=== PATIENT | female | born 1975 | race Caucasian/White ===

== ENCOUNTER → 2019-01-15 | Outpatient (CLI) | payer OTHER ==
--- NOTE | 2019-01-15 10:55 | CARD ---
MR#: [id number] Date of Study: 01/15/2019 Ordering Physician: ADEOLA CLARK, Referring Physician: ADEOLA CLARK, Tech: Guillermina Grimaldo APPROVED REPORT EXAM: Two-dimensional and M-mode echocardiogram with Doppler and color Doppler. Other Information Quality : AverageHR: 82bpm Rhythm : NSR INDICATION Hypertension/HCVD RISK FACTORS Asthma 2D DIMENSIONS RVDd2.6 (2.9-3.5cm)Left Atrium(2D)3.2 (1.6-4.0cm) IVSd1.1 (0.7-1.1cm)Aortic Root(2D)2.8 (2.0-3.7cm) LVDd4.4 (3.9-5.9cm)LVOT Diameter2.1 (1.8-2.4cm) PWd1.0 (0.7-1.1cm)LVDs2.9 (2.5-4.0cm) FS (%) 34.9 %SV57.6 ml LVEF(%)64.3 (>50%) Aortic Valve AoV Peak Gerber.146.7cm/sAoV VTI31.1cm AO Peak GR.8.6mmHgLVOT Peak Gerber.115.8cm/s LVOT VTI 23.09cmAO Mean GR.6mmHg TIMOTHY (VMAX)1.81ak3TVY (VTI)2.52cm2 Mitral Valve MV E Zqxxhfgb50.0cm/sMV DECEL ACDL737xw MV A Mhksenbq17.9cm/sMV AHI17sf E/A Ratio1.3MVA (PHT)4.22cm2 TDI E/Lateral E'7.1E/Medial E'8.1 Pulmonary Valve PV Peak Lhpicuoy58.0cm/sPV Peak Grad.3mmHg Tricuspid Valve TR P. Pjzribox658mk/sRAP LTQDDSTU1mpZc TR Peak Gr.31kmOzCRWG89wtAb Pulmonary Vein S1 Arbvhywp23.9cm/sD2 Dalbghoj69.3cm/s PVa tpmgaezk990jlbd LEFT VENTRICLE The left ventricle is normal size. There is borderline to mild concentric left ventricular hypertroph y. The left ventricular systolic function is normal. The Ejection Fraction is 55-60%. There is normal LV segmental wall motion. Transmitral Doppler flow pattern is Grade II-pseudonormal filling dynamics . RIGHT VENTRICLE The right ventricle is normal size. There is normal right ventricular wall thickness. The right ventr icular systolic function is normal. ATRIA The left atrium size is normal. The right atrium size is normal. The interatrial septum is intact wit h no evidence for an atrial septal defect or patent foramen ovale as noted on 2-D or Doppler imaging. AORTIC VALVE The aortic valve is normal in structure and function. Doppler and Color Flow revealed trace aortic re gurgitation. There is no significant aortic valvular stenosis. MITRAL VALVE The mitral valve is normal in structure and function. There is no evidence of mitral valve prolapse. There is no mitral valve stenosis. Doppler and Color-flow revealed trace mitral regurgitation. TRICUSPID VALVE The tricuspid valve is normal in structure and function. Doppler and Color Flow revealed trace tricus pid regurgitation with an estimated PAP of 28 mmHg. There is no tricuspid valve stenosis. PULMONIC VALVE The pulmonary valve is normal in structure and function. Doppler and Color Flow revealed no pulmonic valvular regurgitation. GREAT VESSELS The aortic root is normal in size. The IVC is normal in size and collapses >50% with inspiration. PERICARDIAL EFFUSION There is no evidence of significant pericardial effusion. Critical Notification Critical Value: No <Conclusion> The left ventricular systolic function is normal. The Ejection Fraction is 55-60%. There is normal LV segmental wall motion. Trace aortic regurgitation. Trace mitral regurgitation. Trace tricuspid regurgitation with an estimated PAP of 28 mmHg. There is no evidence of significant pericardial effusion. Signed by : Solo Emmanuel, Electronically Approved : 01/15/2019 10:55:00
== END | disposition home or self-care (01) ==
LOC: ECHO 08:44
PROVIDERS: ATTEND Internal Medicine
DX: I11.9 Hypertensive heart disease without heart failure (principal)
CPT/HCPCS: 93306

== ENCOUNTER 2019-11-06 23:58 | Emergency (ER) | payer OTHER ==
[~2019-11-06] VITALS: Ht 162.6 cm; Wt 108.0 kg
[2019-11-07] MEDS ORDERED: IV NORMAL SALINE 1000ML BAG 1,000 ML IV SCH (00:30)
[2019-11-07 00:43] LABS: BASO # 0.1 x10^3/uL (0.0-0.2); BASO % 1 % (0-3); EOS # 0.2 x10^3/uL (0.0-0.7); EOS % 2 % (0-3); HEMATOCRIT 38.7 % (36.0-47.0); HEMOGLOBIN 13.2 g/dL (12.0-15.5); LYMPH # 2.8 x10^3/uL (1.0-4.8); LYMPH % 39 % (24-48); MEAN CORPUSCULAR HEMOGLOBIN 31 pg (25-35); MEAN CORPUSCULAR HGB CONC 34 g/dL (31-37); MEAN CORPUSCULAR VOLUME 92 fL (79-100); MONO # 0.6 x10^3/uL (0.0-1.1); MONO % 8 % (0-9); NEUT # 3.6 x10^3/uL (1.8-7.7); NEUT % 50 % (31-73); PLATELET COUNT 279 x10^3/uL (140-400); RED BLOOD COUNT 4.22 x10^6/uL (3.50-5.40); RED CELL DISTRIBUTION WIDTH 13.8 % (11.5-14.5); WHITE BLOOD COUNT 7.3 x10^3/uL (4.0-11.0)
--- NOTE | 2019-11-07 00:54 | RAD ---
Study: CR PORTABLE CHEST 1V Indication: Chest pain. Comparison: None. Findings: Within normal limits cardiomediastinal silhouette and brii. No lobar consolidation, pleural effusion or pneumothorax. Impression: No acute radiographic abnormality of the chest. Electronically signed by: PANFILO BIRMINGHAM MD (11/07/2019 12:52 AM) [id number]
[2019-11-07 00:56] LABS: CALCIUM 8.4 mg/dL (8.5-10.1); CREATININE 1.3 mg/dL (0.6-1.0); GFR 44.3; POTASSIUM 3.5 mmol/L (3.5-5.1)
[2019-11-07 01:02] LABS: ALBUMIN 3.6 g/dL (3.4-5.0); ALBUMIN/GLOBULIN RATIO 1.2 (1.0-1.7); MAGNESIUM 1.8 mg/dL (1.8-2.4); TOTAL BILIRUBIN 0.5 mg/dL (0.2-1.0); TOTAL PROTEIN 6.6 g/dL (6.4-8.2)
--- NOTE | 2019-11-07 01:19 | PHYS DOC ---
Past Medical History Past Medical History: Asthma, GERD, Hypertension Past Surgical History: No Surgical History Smoking Status: Never Smoker Alcohol Use: None General Adult EDM: Chief Complaint: WEAKNESS/GENERALIZED HPI: HPI: Patient is a 44 year old female who presents with complaint of right arm numbness that started about 4 hours prior to arrival. Patient states that she had been out walking with her when she started noticing some numbness and tingling in her right arm. She denies any other symptoms at that time. She also indicates that she has been having ongoing chest discomfort for the last several weeks that has been intermittent. She states that her primary care doctor has worked it up but has so far returned negative. Patient states that when she got here in the hospital, she noticed that she had some weakness in both her legs, stating that they felt a little bit unsteady. She denies any numbness in the legs. She denies any speech deficits or focal lateralizing weakness. She denies any actual chest pain currently.[] Review of Systems: Review of Systems: Constitutional: Denies fever or chills. [] Respiratory: Denies cough or shortness of breath. [] Cardiovascular: Complains of intermittent chest pain. [] GI: Denies abdominal pain, nausea, vomiting, bloody stools or diarrhea. [] Neurologic: Denies headache or focal weakness. Complains of right arm numbness and tingling area [] A full 10 point review of systems has been reviewed and is otherwise negative. Heart Score: Risk Factors: Risk Factors: DM, Current or recent (<one month) smoker, HTN, HLP, family history of CAD, obesity. Risk Scores: Score 0 - 3: 2.5% MACE over next 6 weeks - Discharge Home Score 4 - 6: 20.3% MACE over next 6 weeks - Admit for Clinical Observation Score 7 - 10: 72.7% MACE over next 6 weeks - Early Invasive Strategies Current Medications: Current Medications Medications (Trade) Dose Ordered Sig/Katy Start Time Stop Time Status Last Admin Dose Admin Sodium Chloride 1,000 ml @ 1,000 mls/hr Q1H 11/07/19 00:30 11/07/19 01:29 11/07/19 01:01 1,000 MLS/HR Allergies: Allergies: Allergies Coded Allergies Type Severity Reaction Last Updated Verified No Known Drug Allergies 11/07/19 No Physical Exam: PE: Constitutional: Well developed, well nourished, no acute distress, non-toxic appearance. [] HENT: Normocephalic, atraumatic, bilateral external ears normal, oropharynx moist, no oral exudates, nose normal. [] Eyes: PERRLA, EOMI, conjunctiva normal, no discharge. [] Neck: Normal range of motion, no tenderness, supple, no stridor. [] Cardiovascular: Regular rate and rhythm[] Lungs & Thorax: Bilateral breath sounds clear to auscultation [] Abdomen: Bowel sounds normal, soft, no tenderness. [] Skin: Warm, dry, no erythema, no rash. [] Extremities: No tenderness, no cyanosis, no clubbing, ROM intact. [] Neurologic: Alert and oriented X 3, normal motor function, normal sensory function, no focal deficits noted. [] Current Patient Data: Labs: Laboratory Tests Test 11/07/19 00:27 White Blood Count 7.3 x10^3/uL (4.0-11.0) Red Blood Count 4.22 x10^6/uL (3.50-5.40) Hemoglobin 13.2 g/dL (12.0-15.5) Hematocrit 38.7 % (36.0-47.0) Mean Corpuscular Volume 92 fL (79-100) Mean Corpuscular Hemoglobin 31 pg (25-35) Mean Corpuscular Hemoglobin Concent 34 g/dL (31-37) Red Cell Distribution Width 13.8 % (11.5-14.5) Platelet Count 279 x10^3/uL (140-400) Neutrophils (%) (Auto) 50 % (31-73) Lymphocytes (%) (Auto) 39 % (24-48) Monocytes (%) (Auto) 8 % (0-9) Eosinophils (%) (Auto) 2 % (0-3) Basophils (%) (Auto) 1 % (0-3) Neutrophils # (Auto) 3.6 x10^3/uL (1.8-7.7) Lymphocytes # (Auto) 2.8 x10^3/uL (1.0-4.8) Monocytes # (Auto) 0.6 x10^3/uL (0.0-1.1) Eosinophils # (Auto) 0.2 x10^3/uL (0.0-0.7) Basophils # (Auto) 0.1 x10^3/uL (0.0-0.2) Sodium Level 144 mmol/L (136-145) Potassium Level 3.5 mmol/L (3.5-5.1) Chloride Level 103 mmol/L (98-107) Carbon Dioxide Level 30 mmol/L (21-32) Anion Gap 11 (6-14) Blood Urea Nitrogen 20 mg/dL (7-20) Creatinine 1.3 mg/dL (0.6-1.0) H Estimated GFR (Cockcroft-Gault) 44.3 BUN/Creatinine Ratio 15 (6-20) Glucose Level 107 mg/dL (70-99) H Calcium Level 8.4 mg/dL (8.5-10.1) L Magnesium Level 1.8 mg/dL (1.8-2.4) Total Bilirubin 0.5 mg/dL (0.2-1.0) Aspartate Amino Transferase (AST) 21 U/L (15-37) Alanine Aminotransferase (ALT) 34 U/L (14-59) Alkaline Phosphatase 95 U/L (46-116) Troponin I Quantitative < 0.017 ng/mL (0.000-0.055) NF-Abe-H-Type Natriuretic Peptide 7 pg/mL (0-124) Total Protein 6.6 g/dL (6.4-8.2) Albumin 3.6 g/dL (3.4-5.0) Albumin/Globulin Ratio 1.2 (1.0-1.7) Lipase 352 U/L (73-393) Laboratory Tests 11/07/19 00:27 Laboratory Tests 11/07/19 00:27 Vital Signs: Vital Signs Date Time Temp Pulse Resp B/P (MAP) Pulse Ox O2 Delivery O2 Flow Rate FiO2 11/07/19 01:00 104 20 96 11/07/19 00:07 97.7 127/94 (105) Room Air 97.7 EKG: EKG: EKG demonstrates normal sinus rhythm with rate of 95.[] Radiology/Procedures: Radiology/Procedures: [] Impression: PROCEDURE: CT HEAD WO CONTRAST STUDY: CT head without contrast INDICATION: Right arm numbness. Bilateral leg weakness. COMPARISON: 02/15/2013 TECHNIQUE: Axial CT imaging through the head without the use of intravenous contrast. Sagittal and coronal reformats were obtained. One or more of the following individualized dose reduction techniques were utilized for this examination: 1. Automated exposure control 2. Adjustment of the mA and/or kV according to patient size 3. Use of iterative reconstruction technique. FINDINGS: No acute intracranial hemorrhage. No mass effect, midline shift or hydrocephalus. No CT evidence for an acute cortical infarction. The visualized orbits are unremarkable. No large scalp hematoma. Intact calvarium. Normally aerated mastoid air cells and middle ears. The visualized paranasal sinuses are normally aerated as well. IMPRESSION: No acute intracranial abnormality by CT. If there is ongoing concern for a recent ischemic event MRI is recommended. Electronically signed by: PANFILO BIRMINGHAM MD (11/07/2019 2:08 AM) [id number] Course & Med Decision Making: Course & Med Decision Making Pertinent Labs and Imaging studies reviewed. (See chart for details) [] Dragon Disclaimer: Dragon Disclaimer: This electronic medical record was generated, in whole or in part, using a voice recognition dictation system. Departure Departure Impression: Primary Impression: Paresthesia Disposition: 01 HOME, SELF-CARE Condition: STABLE Referrals: ADEOLA CLARK MD (PCP) Patient Instructions: Paresthesia JAYA PEGUERO Jr. DO Nov 07, 2019 01:19
[2019-11-07 02:08] VITALS: BP 103/76
--- NOTE | 2019-11-07 02:11 | RAD ---
STUDY: CT head without contrast INDICATION: Right arm numbness. Bilateral leg weakness. COMPARISON: 02/15/2013 TECHNIQUE: Axial CT imaging through the head without the use of intravenous contrast. Sagittal and coronal reformats were obtained. One or more of the following individualized dose reduction techniques were utilized for this examination: 1. Automated exposure control 2. Adjustment of the mA and/or kV according to patient size 3. Use of iterative reconstruction technique. FINDINGS: No acute intracranial hemorrhage. No mass effect, midline shift or hydrocephalus. No CT evidence for an acute cortical infarction. The visualized orbits are unremarkable. No large scalp hematoma. Intact calvarium. Normally aerated mastoid air cells and middle ears. The visualized paranasal sinuses are normally aerated as well. IMPRESSION: No acute intracranial abnormality by CT. If there is ongoing concern for a recent ischemic event MRI is recommended. Electronically signed by: PANFILO BIRMINGHAM MD (11/07/2019 2:08 AM) [id number]
[2019-11-07 02:26] LABS: BILIRUBIN,URINE NEGATIVE (NEG); CLARITY,URINE CLEAR; COLOR,URINE YELLOW; NITRITE,URINE NEGATIVE (NEG); PROTEIN,URINE NEGATIVE (NEG-TRACE)
[2019-11-07 02:37] LABS: BACTERIA,URINE FEW /HPF (0-FEW); HYALINE CASTS, URINE FEW /HPF; RBC,URINE OCC /HPF (0-2); SQUAMOUS EPITHELIAL CELL,UR MOD /LPF
--- NOTE | 2019-11-07 05:13 | EKG ---
[facility] [address] [place] [address] Test Date: 2019-11-07 Test Time: 00:29:45 Pat Name: ARIAN GAVIN Department: Room: Gender: F Scientific Investigator: : 1975 Requested By: JAYA PEGUERO Order Number: [id number] Reading MD: Solo Emmanuel Measurements Intervals [place] Rate: 94 P: 24 [place]: 138 QRS: 12 QRSD: 74 T: -1 QT: 366 QTc: 463 Interpretive Statements SINUS RHYTHM NON SPECIFIC T ABNORMALITY Electronically Signed On 11-07-2019 20:18:11 CDT by Solo Emmanuel
== END 2019-11-07 02:30 | disposition home or self-care (01) ==
LOC: ER 23:58
DX: R20.2 Paresthesia of skin (principal); R07.89 Other chest pain; J45.909 Unspecified asthma, uncomplicated; I10 Essential (primary) hypertension; K21.9 Gastro-esophageal reflux disease without esophagitis
CPT/HCPCS: 36415; 70450; 71045; 80053; 81001; 81025; 83690; 83735; 83880; 84484; 85025; 93005; 99285; J7030

== ENCOUNTER 2019-11-15 17:39 | Emergency (ER) | payer OTHER ==
[~2019-11-15] VITALS: Ht 162.6 cm; Wt 96.8 kg
[2019-11-15] MEDS ORDERED: IV NORMAL SALINE 1000ML BAG 1,000 ML IV ONE (18:15)
--- NOTE | 2019-11-15 18:25 | PHYS DOC ---
Past Medical History Past Medical History: Asthma, GERD, Hypertension Past Surgical History: No Surgical History Smoking Status: Never Smoker Alcohol Use: None Drug Use: None General Adult EDM: Chief Complaint: CHEST PAIN HPI: HPI: 44-year-old female presents with 4 week history of midsternal chest discomfort which is worse after eating. Reports sensation that she needs to "burp". Patient reports she has previously been seen and had a x-ray performed. Patient was seen via Dr. Rae (GI) and underwent and an EGD in which she had her esophagus stretched. Patient reports pain is worse today. Denies fever or chills. Denies cough. Denies leg swelling or calf tenderness. Reports her PCP thought initially symptoms might be secondary to her asthma. Patient reports concern that symptoms have continued despite all these interventions and evaluations. Cardiac risk factors for high blood pressure. Review of Systems: Review of Systems: Constitutional: Denies fever or chills Eyes: Denies redness or eye pain HENT: Denies nasal congestion or sore throat Respiratory: Denies cough or shortness of breath Cardiovascular: Reports chest pain; denies palpitations GI: Reports upper abdominal pain; denies nausea or vomiting : Denies dysuria or hematuria Musculoskeletal: Denies back pain or joint pain Integument: Denies rash or skin lesions Neurologic: Denies headache, focal weakness or sensory changes Complete systems were reviewed and found to be within normal limits, except as documented in this note. Heart Score: HEART Score for Chest Pain: HEART Score for Chest Pain Response (Comments) Value History Slighlty/Non-Suspicious 0 ECG Normal 0 Age >45 - < 65 1 Risk Factors 1 or 2 Risk Factors 1 Troponin < Normal Limit 0 Total 2 Risk Factors: Risk Factors: DM, Current or recent (<one month) smoker, HTN, HLP, family history of CAD, obesity. Risk Scores: Score 0 - 3: 2.5% MACE over next 6 weeks - Discharge Home Score 4 - 6: 20.3% MACE over next 6 weeks - Admit for Clinical Observation Score 7 - 10: 72.7% MACE over next 6 weeks - Early Invasive Strategies Current Medications: Current Medications Medications (Trade) Dose Ordered Sig/Katy Start Time Stop Time Status Last Admin Dose Admin Famotidine (Pepcid Vial) 20 mg 1X ONCE 11/15/19 18:45 5/4/20 18:46 Sodium Chloride 1,000 ml @ 1,000 mls/hr 1X ONCE 11/15/19 18:15 11/15/19 19:14 Allergies: Allergies: Allergies Coded Allergies Type Severity Reaction Last Updated Verified No Known Drug Allergies 11/07/19 No Physical Exam: PE: Constitutional: Well developed, well nourished, no acute distress, non-toxic appearance HENT: Normocephalic, atraumatic, oropharynx moist Eyes: Conjunctiva normal, no discharge Neck: Normal range of motion, no tenderness, supple Cardiovascular: Heart rate normal, regular rhythm Lungs & Thorax: Bilateral breath sounds clear to auscultation, no wheezing/rales/rhonchi Abdomen: Soft, epigastric and LUQ tenderness Skin: Warm, dry, no erythema, no rash Back: No tenderness, no CVA tenderness Extremities: No calf tenderness, ROM intact, no edema Neurologic: Alert and oriented X 3, no focal deficits noted Psychologic: Affect normal, judgment normal Current Patient Data: Vital Signs: Vital Signs Date Time Temp Pulse Resp B/P (MAP) Pulse Ox O2 Delivery O2 Flow Rate FiO2 11/15/19 17:55 98.3 105 16 132/94 (107) 96 Room Air 98.3 EKG: EKG: @1753 Sinus tachycardia 104bpm, t wave inversion III Radiology/Procedures: Radiology/Procedures: PROCEDURE: ABDOMEN LTD CLINICAL HISTORY: upper abdominal pain, worse with eating, eval for cholecystitis COMPARISON: None available. TECHNIQUE: Limited ultrasound examination of the right upper quadrant of the abdomen was performed FINDINGS: Exam is limited given suboptimal sonographic penetration. Pancreas is mostly posterior by overlying bowel gas and stool. Liver: The liver measures 15.7 cm in length in the right mid clavicular line. Increased hepatic echogenicity relative to the right kidney consistent with hepatic steatosis. There is no focal abnormality of the liver. Portal venous flow is confirmed. Gallbladder/Biliary: The gallbladder is normal in appearance without evidence for cholelithiasis. There is no wall thickening or pericholecystic fluid. There is no pain with direct transducer pressure over the gallbladder.The common bile duct measures 0.3 cm. The right kidney measures 9.9 cm in bipolar length. No focal renal lesion. No hydronephrosis. No hydroureter. There is no free fluid in the subhepatic space. IMPRESSION: 1. Increased hepatic echogenicity relative to the right kidney consistent with hepatic steatosis. 2. No sonographic evidence for acute cholecystitis. Electronically signed by: Wily Velasco MD (11/15/2019 7:32 PM) [facility] PROCEDURE: CT ANGIOGRAPHY CHEST ABDOMEN CT ANGIOGRAPHY CHEST ABDOMEN Indication: Chest pain, upper abdominal pain Technique: Pre and postcontrast CT imaging was performed of the chest and abdomen, multiplanar reconstruction to include MIP reconstruction images submitted. One or more of the following individualized dose reduction techniques were utilized for this examination: 1. Automated exposure control 2. Adjustment of the mA and/or kV according to patient size 3. Use of iterative reconstruction technique. Comparison: None CHEST: Findings: There is some motion degradation. Thoracic aortic caliber is within normal limits. No definitive thoracic dissection flap is identified allowing for motion degradation. Maximal caliber of the aortic root is estimated about 3 cm, maximal caliber of the tubular ascending thoracic aorta about 3 cm. Descending thoracic aorta measures up to about 2.2 cm. There is no pneumothorax, pleural pericardial fluid, or significant infiltrate. The major airways are patent. No significantly enlarged nodes are identified of the chest. IMPRESSION: 1. There is no evidence of thoracic aortic aneurysm or convincing dissection flap. Abdomen FINDINGS: Abdominal aortic caliber is within normal limits. No dissection flap identified of the abdominal aorta. There is appearance of heterogeneity of the common iliac arteries bilaterally apparently due to motion degradation. Pelvis was not imaged. There are 2 patient renal arteries on both sides. Celiac, superior mesenteric, and inferior mesenteric arteries are patent. There is no adrenal nodularity. There is diffuse hepatic steatosis. There are some hepatic and splenic granulomas. There is no renal calculus or hydronephrosis. Both kidneys enhance symmetrically. There is L4-5 degenerative disc disease, likely disc bulges L3-4 through L5-S1. IMPRESSION: 1.There is no evidence of abdominal aortic dissection or aneurysm. Appearance of heterogeneity of the common iliac arteries bilaterally is likely due to motion degradation. 2. There is hepatic steatosis. Electronically signed by: Stephane Klein MD (11/15/2019 8:16 PM) [facility] Course & Med Decision Making: Course & Med Decision Making Pertinent Labs and Imaging studies reviewed. (See chart for details) Patient presents with atypical chest pain. History of recent EGD. Patient had been previously seen by her PCP with reportedly normal chest x-ray. Patient reports continued symptoms. Symptomatic treatment provided with IV fluids and Pepcid. EKG stable. Labs obtained and posted to chart. Troponin within normal limits. Tbili and AST/ALT slightly elevated. UA with signs of dehydration. Also appears contaminated. Patient declines urinary symptoms. Will await UCX and hold antibiotic therapy at this time. HEART score 2. CTA chest/abdomen without acute process. Abd US without signs of acute cholecystitis. Patient stable for discharge with outpatient follow-up with PCP/GI. Discussed findings and plan with patient, who acknowledges understanding and agreement. Meme Disclaimer: Meme Disclaimer: This electronic medical record was generated, in whole or in part, using a voice recognition dictation system. Departure Departure Impression: Primary Impression: Atypical chest pain Additional Impression: Elevated LFTs Disposition: HOME, SELF-CARE Condition: STABLE Referrals: ADEOLA CLARK MD (PCP) ANALISA RAE MD Patient Instructions: Chest Pain (Nonspecific), [id number], Liver Panel Additional Instructions: Follow closely with your doctors regarding elevated liver function tests (LFTs) Scripts Sucralfate (CARAFATE) 1 Gm Tablet 1 TAB PO QID, #60 TAB 0 Refills Take 30 min before meals and then again before bedtime Prov: MARBIN LUNA DO 11/15/19 PERC Rule for PE PERC Rule for PE PERC Rule for PE Response (Comments) Value Age > 50: No 0 HR > 100: Yes 1 Sa02 on room air <95%: No 0 Unilateral leg swelling: No 0 Hemoptysis: No 0 Recent surgery or trauma: No 0 Prior PE or DVT: No 0 Hormone use: No 0 Total 1 MARBIN LUNA DO November 15, 2019 18:25
[2019-11-15 18:34] LABS: BASO % 0 % (0-3); EOS % 1 % (0-3); HEMOGLOBIN 14.6 g/dL (12.0-15.5); LYMPH # 1.2 x10^3/uL (1.0-4.8); LYMPH % 16 % (24-48); MEAN CORPUSCULAR HEMOGLOBIN 31 pg (25-35); MEAN CORPUSCULAR HGB CONC 34 g/dL (31-37); MEAN CORPUSCULAR VOLUME 92 fL (79-100); MONO # 0.6 x10^3/uL (0.0-1.1); MONO % 9 % (0-9); NEUT # 5.6 x10^3/uL (1.8-7.7); NEUT % 75 % (31-73); PLATELET COUNT 276 x10^3/uL (140-400); RED BLOOD COUNT 4.69 x10^6/uL (3.50-5.40); RED CELL DISTRIBUTION WIDTH 13.7 % (11.5-14.5); WHITE BLOOD COUNT 7.5 x10^3/uL (4.0-11.0)
[2019-11-15] MEDS ORDERED: FAMOTIDINE 20 MG/2 ML VIAL IVP ONE (18:45)
[2019-11-15 18:49] LABS: CALCIUM 9.2 mg/dL (8.5-10.1); POTASSIUM 3.5 mmol/L (3.5-5.1)
[2019-11-15 18:52] LABS: BILIRUBIN,URINE SMALL (NEG); CLARITY,URINE CLEAR; COLOR,URINE AMBER; NITRITE,URINE NEGATIVE (NEG); PROTEIN,URINE NEGATIVE (NEG-TRACE)
[2019-11-15 18:54] LABS: ALBUMIN 4.4 g/dL (3.4-5.0); ALBUMIN/GLOBULIN RATIO 1.2 (1.0-1.7); MAGNESIUM 1.9 mg/dL (1.8-2.4); TOTAL BILIRUBIN 1.6 mg/dL (0.2-1.0); TOTAL PROTEIN 8.2 g/dL (6.4-8.2)
[2019-11-15 19:01] LABS: BACTERIA,URINE MODERATE /HPF (0-FEW); RBC,URINE RARE /HPF (0-2); SQUAMOUS EPITHELIAL CELL,UR MANY /LPF
[2019-11-15 19:17] LABS: PREG TEST PT QUAL NEGATIVE (NEG)
--- NOTE | 2019-11-15 19:35 | RAD ---
CLINICAL HISTORY: upper abdominal pain, worse with eating, eval for cholecystitis COMPARISON: None available. TECHNIQUE: Limited ultrasound examination of the right upper quadrant of the abdomen was performed FINDINGS: Exam is limited given suboptimal sonographic penetration. Pancreas is mostly posterior by overlying bowel gas and stool. Liver: The liver measures 15.7 cm in length in the right mid clavicular line. Increased hepatic echogenicity relative to the right kidney consistent with hepatic steatosis. There is no focal abnormality of the liver. Portal venous flow is confirmed. Gallbladder/Biliary: The gallbladder is normal in appearance without evidence for cholelithiasis. There is no wall thickening or pericholecystic fluid. There is no pain with direct transducer pressure over the gallbladder.The common bile duct measures 0.3 cm. The right kidney measures 9.9 cm in bipolar length. No focal renal lesion. No hydronephrosis. No hydroureter. There is no free fluid in the subhepatic space. IMPRESSION: 1. Increased hepatic echogenicity relative to the right kidney consistent with hepatic steatosis. 2. No sonographic evidence for acute cholecystitis. Electronically signed by: Wily Velasco MD (11/15/2019 7:32 PM) [facility]
[2019-11-15] MEDS ORDERED: CONTRAST GIVEN. MC PRN (19:45)
[2019-11-15] MEDS ORDERED: IOHEXOL 350 MG/ML 100 ML VIAL. IV ONE (19:45)
--- NOTE | 2019-11-15 20:19 | RAD ---
CT ANGIOGRAPHY CHEST ABDOMEN Indication: Chest pain, upper abdominal pain Technique: Pre and postcontrast CT imaging was performed of the chest and abdomen, multiplanar reconstruction to include MIP reconstruction images submitted. One or more of the following individualized dose reduction techniques were utilized for this examination: 1. Automated exposure control 2. Adjustment of the mA and/or kV according to patient size 3. Use of iterative reconstruction technique. Comparison: None CHEST: Findings: There is some motion degradation. Thoracic aortic caliber is within normal limits. No definitive thoracic dissection flap is identified allowing for motion degradation. Maximal caliber of the aortic root is estimated about 3 cm, maximal caliber of the tubular ascending thoracic aorta about 3 cm. Descending thoracic aorta measures up to about 2.2 cm. There is no pneumothorax, pleural pericardial fluid, or significant infiltrate. The major airways are patent. No significantly enlarged nodes are identified of the chest. IMPRESSION: 1. There is no evidence of thoracic aortic aneurysm or convincing dissection flap. Abdomen FINDINGS: Abdominal aortic caliber is within normal limits. No dissection flap identified of the abdominal aorta. There is appearance of heterogeneity of the common iliac arteries bilaterally apparently due to motion degradation. Pelvis was not imaged. There are 2 patient renal arteries on both sides. Celiac, superior mesenteric, and inferior mesenteric arteries are patent. There is no adrenal nodularity. There is diffuse hepatic steatosis. There are some hepatic and splenic granulomas. There is no renal calculus or hydronephrosis. Both kidneys enhance symmetrically. There is L4-5 degenerative disc disease, likely disc bulges L3-4 through L5-S1. IMPRESSION: 1.There is no evidence of abdominal aortic dissection or aneurysm. Appearance of heterogeneity of the common iliac arteries bilaterally is likely due to motion degradation. 2. There is hepatic steatosis. Electronically signed by: Stephane Klein MD (11/15/2019 8:16 PM) [facility]
[2019-11-15 20:21] VITALS: BP 118/78
[2019-11-15] MEDS ORDERED: SUCR1TAB35 PO (20:39)
--- NOTE | 2019-11-16 06:17 | EKG ---
[facility] [address] [place] [address] Test Date: 2019-11-15 Test Time: 17:53:08 Pat Name: ARIAN GAVIN Department: Room: Gender: F Housecleaner Floor: : 1975 Requested By: MARBIN LUNA Order Number: [id number] Reading MD: Solo Emmanuel Measurements Intervals [place] Rate: 104 P: 26 DC: 132 QRS: 0 QRSD: 82 T: -5 QT: 344 QTc: 459 Interpretive Statements SINUS TACHYCARDIA LEFTWARD AXIS Electronically Signed On 11-16-2019 8:18:06 CDT by Solo Emmanuel
== END 2019-11-15 20:53 | disposition home or self-care (01) ==
LOC: ER 17:39
DX: R07.2 Precordial pain (principal); R79.89 Other specified abnormal findings of blood chemistry; K76.0 Fatty (change of) liver, not elsewhere classified; R00.0 Tachycardia, unspecified; I10 Essential (primary) hypertension; J45.909 Unspecified asthma, uncomplicated; K21.9 Gastro-esophageal reflux disease without esophagitis
CPT/HCPCS: 36415; 71275; 74175; 76705; 80053; 81001; 82553; 83690; 83735; 83880; 84484; 84703; 85025; 87086; 93005; 96374; 99285; J3490; J7030; Q9967

== ENCOUNTER → 2019-11-17 | Outpatient (CLI) | payer OTHER ==
[2019-11-15 20:21] VITALS: BP 118/78
[~2019-11-17] MED LIST: BARIUM SULFATE 340 GM SUSPENSION. PO ONE; BARIUM SULFATE 60% 355 ML SUSP PO ONE; SUCR1TAB35 PO
--- NOTE | 2019-11-17 10:24 | RAD ---
Cervical and thoracic esophagram INDICATION: Difficulty swallowing. 44-year-old woman with sensation of food stuck in her throat as well as complaints of neck and chest pain intermittently. COMPARISON: CT angiogram chest of 11/15/2019 TECHNIQUE: Rapid sequence imaging of the cervical esophagus was performed during ingestion of thick barium and spot fluoroscopic images in the lateral and frontal projections were obtained. Thereafter, thoracic esophagram was performed in the bilateral posterior oblique projections and additional images acquired of the gastroesophageal junction in the upright, supine and prone positions with and without Valsalva. 14 image series were acquired for procedural documentation total fluoroscopy time of 2.3 minutes. FINDINGS: No filling defects in the hypopharynx or cervical esophagus were observed. No evidence of a diverticulum or stricture. Thoracic esophagram also showed no narrowing, abnormal dilation, diverticuli or evidence of extravasation. No significant gastroesophageal reflux was observed with provocative maneuvers in different positions. IMPRESSION: Unremarkable cervical and thoracic esophagram. No specific findings to explain difficulty swallowing. Electronically signed by: Mauri Thomas MD (11/17/2019 10:21 AM) [id number]
== END | disposition home or self-care (01) ==
LOC: RAD 08:39
PROVIDERS: ATTEND Internal Medicine Gastroenterology
DX: R13.10 Dysphagia, unspecified (principal)
CPT/HCPCS: 74220